=== PATIENT | female | born 1980 | race Asian ===

== ENCOUNTER 2016-11-25 18:17 | Emergency (ER) | payer SELFPAY ==
[~2016-11-25] VITALS: Ht 157.5 cm; Wt 56.5 kg
[~2016-11-25 18:17] MED LIST: BACTDS PO; CEPH500C PO; IBUP400T22 PO; NEOM28.33 TOP
[2016-11-25 18:19] VITALS: Ht 157.5 cm; Wt 56.5 kg
== END 2016-11-25 19:02 | disposition left against medical advice (07) ==
LOC: FTE 18:17
DX: Z53.21 Procedure and treatment not carried out due to patient leaving prior to being seen by health care provider (principal)